=== PATIENT | male | born 1980 | race Caucasian/White ===

== ENCOUNTER 2017-01-01 18:34 | Emergency (ER) | payer MEDICAID ==
[~2017-01-01] VITALS: Ht 172.7 cm; Wt 87.4 kg
[~2017-01-01 18:34] MED LIST: BEN25 PO; HC1C30 TOP
[2017-01-01 18:39] VITALS: Ht 172.7 cm; Wt 87.4 kg
--- NOTE | 2017-01-01 18:58 | ERD ---
ER Documentation Chief Complaint Chief Complaint sp insect bite, right ankle open wound HPI 36-year-old male, previously healthy, presents to the emergency department complaining of an unidentified insect bite on his right internal malleolus that occurred 4 days ago. After the bite the patient had a painless blister surrounded by erythema and mild edema. The patient denies fevers, chills, arthralgia, rashes. ROS All systems reviewed and are negative except as per history of present illness. Medications Home Meds Active Scripts Silver Sulfadiazine* (SSD*) 1% - 20 Gm Cream.gm., 1 APPLIC TOP BID, #1 TUB Prov:CRYSTAL ROLAND MD 01/01/17 Hydrocortisone* Topical (Hydrocortisone* Topical) 1%-28.35 Gm Cream..g., 1 APPLIC TOP BID Y for ITCHING, #1 TUB Prov:CHAD DREW. 11/25/14 Diphenhydramine Hcl* (Benadryl*) 25 Mg Cap, 25 MG PO Q6, #20 CAP Prov:CHAD DREW. 11/25/14 Allergies Allergies: Coded Allergies: No Known Allergies (Verified Allergy, 10/14/10) PMhx/Soc History of Surgery: No Anesthesia Reaction: No Hx Neurological Disorder: No Hx Respiratory Disorders: No Hx Cardiac Disorders: No Hx Psychiatric Problems: No Hx Miscellaneous Medical Probl: No (NO OTHER MEDICAL PROBLEMS) Hx Alcohol Use: No Hx Substance Use: No Hx Tobacco Use: No Smoking Status: Never smoker Physical Exam Vitals Vital Signs Date Time Temp Pulse Resp B/P Pulse Ox O2 Delivery O2 Flow Rate FiO2 01/01/17 18:39 97.9 87 20 141/84 100 Physical Exam Patient is in no acute distress, vital signs stable. Alert and fully oriented. EYES: PERRLA, EOMI, Sclera and conjunctiva appear normal. EARS: Canals clear, tympanic membranes WNL THROAT: Normal oropharynx. NECK: Supple, No lymphadenopathy. Full ROM without pain or tenderness. HEART: RRR, no rubs, murmurs, clicks or gallops. LUNGS: Clear to auscultation. ABDOMEN: Soft, non-tender without masses or hepatosplenomegaly. EXTREMITIES: Right internal malleolus: 1 cm round ulcer, clean, with mild erythema. No edema, no warmth. Neurovascular exam intact BACK: Full ROM, no deformity, normal back exam NEURO: Cranial nerves grossly intact, no motor or sensory deficit Procedures/MDM 36y/o male patient unremarkable medical history, presents to the ED c/o right ankle ulcer after an insect bite for 4 days. Vital signs stable, Physical exam unremarkable, except for 2 cm round clean ulcer on internal malleolus, without signs of infection. Differential diagnosis include but not limited to: Cellulitis, abscess, allergic reaction, impetigo. Physical examination and clinical presentation consistent most likely with insect bite without infection. During the ED course the patient remained stable, no new complaints. Results and clinical impression discussed with patient who agrees with management. The patient is stable to be treated outpatient and will be discharged home with a Rx for topical Silvadene The patient was instructed to follow up with the primary care provider in the next 48h. If symptoms persist, worsen or new symptoms develop, then patient should return to the ED immediately. Instructions explained and given to patient in [place]an with acknowledgment and demonstrated understanding. Disclaimer: Inadvertent spelling and grammatical errors are likely due to EHR/ dictation software use and do not reflect on the overall quality of patient care. Also, please note that the electronic time recorded on this note does not necessarily reflect the actual time of the patient encounter. Departure Diagnosis: Primary Impression: Insect bite Condition: Stable Additional Instructions: Muchas charbel por [facility] para vail servicio. Esperamos que en vail visita a la queenie de emergencia vail problema medico haya sido solucionado y que se sienta mucho mejor. Para estar seguros que vail mejoria sigue en proceso, le pedimos el favor de hacer juan romelia de seguimiento medico con vail doctor primario en los proximos 2-4 blair. Lleve con usted estos documentos y las medicinas recetadas. Si bari sintomas empeoran y no puede sheridan a vail doctor, por favor regrese a queenie de emergencia. En mathew que usted no tenga un mdico de atencin primaria: Llame al mdico o clnica comunitaria de referencia que aparece abajo som las horas de consultorio para hacer juan romelia para que le vean. CLINICAS: [facility] [phone] [address] [facility] [phone] [address] [facility] [phone] [address] [facility] [phone] [address] [place] [id number] [phone] [facility]. [phone] CRYSTAL BAR MD Jan 01, 2017 18:58
[2017-01-01] MEDS ORDERED: SILV20CR13 TOP (19:11)
== END 2017-01-01 19:23 | disposition home or self-care (01) ==
LOC: FTE 18:34
DX: S90.561A Insect bite (nonvenomous), right ankle, initial encounter (principal); W57.XXXA Bitten or stung by nonvenomous insect and other nonvenomous arthropods, initial encounter; Y92.9 Unspecified place or not applicable
CPT/HCPCS: 99283

== ENCOUNTER 2017-09-25 13:55 | Emergency (ER) | END 2017-09-25 16:30 | disposition home or self-care (01) ==

== ENCOUNTER 2018-07-16 20:20 | Emergency (ER) | payer MEDICAID ==
[~2018-07-16] VITALS: Ht 175.3 cm; Wt 84.0 kg
[~2018-07-16 20:20] MED LIST changes: +PRED20TA PO; +SILV20CR13 TOP; +TRIA15CR55 TOP
[2018-07-16 20:31] VITALS: Ht 175.3 cm; Wt 84.0 kg
[2018-07-16] MEDS ORDERED: BEN25 PO (22:58)
[2018-07-16] MEDS ORDERED: HC30CR25 TOP (22:58)
[2018-07-16] MEDS ORDERED: IBUP-1542 PO (22:58)
--- NOTE | 2018-07-16 23:12 | ERD ---
ER Documentation Chief Complaint Chief Complaint pain/redness/rash/ right lower leg since yesterday, states poss insect bite HPI 38-year-old male with no reported past medical history who presents with complaint of right lower leg itchy rash. States he was at his brother's house and felt he was bit by an unknown insect. Since that time is had a small area of redness to the dorsum of right lower extremity. Area nontender to touch, pruritic. He otherwise denies lower extremity weakness, paresthesias, fevers, chills, concerning respiratory symptoms such as shortness of breath, dyspnea, lip or tongue swelling. He denies any allergies to any medications and is otherwise without complaint. ROS All systems reviewed and are negative except as per history of present illness. Medications Home Meds Active Scripts Ibuprofen* (Motrin*) 600 Mg Tab, 600 MG PO Q6, #30 TAB Prov:YEMI DE LA TORRE PA-C 07/16/18 Diphenhydramine Hcl* (Benadryl*) 25 Mg Cap, 25 MG PO Q6 PRN for ITCHING/RASH, #20 TAB Prov:YEMI DE LA TORRE PA-C 07/16/18 Hydrocortisone* Topical (Hydrocortisone* Topical) 2.5%-28.3 Gm Cream..g., 1 APPLIC TOP BID for 7 Days, #1 TUB Prov:YEMI DE LA TORRE PA-C 07/16/18 Prednisone* (Prednisone*) 20 Mg Tab, 40 MG PO DAILY for 4 Days, TAB Prov:SHANNAN MANN MD 09/25/17 Diphenhydramine Hcl* (Benadryl*) 25 Mg Cap, 25 MG PO Q6, #15 CAP Prov:SHANNAN MANN MD 09/25/17 Triamcinolone Acetonide (Triamcinolone Acetonide) 0.1% - 15 Gm Cream.gm., 1 APPLIC TOP BID for 7 Days, #1 TUB Prov:SHANNAN MANN MD 09/25/17 Silver Sulfadiazine* (SSD*) 1% - 20 Gm Cream.gm., 1 APPLIC TOP BID, #1 TUB Prov:CRYSTAL ROLAND MD 01/01/17 Hydrocortisone* Topical (Hydrocortisone* Topical) 1%-28.35 Gm Cream..g., 1 APPLIC TOP BID PRN for ITCHING, #1 TUB Prov:CHAD DREW M. 11/25/14 Diphenhydramine Hcl* (Benadryl*) 25 Mg Cap, 25 MG PO Q6, #20 CAP Prov:CHAD DREW M. 11/25/14 Allergies Allergies: Coded Allergies: No Known Allergies (Verified Allergy, Unknown, 09/25/17) PMhx/Soc History of Surgery: No Anesthesia Reaction: No Hx Neurological Disorder: No Hx Respiratory Disorders: No Hx Cardiac Disorders: No Hx Psychiatric Problems: No Hx Miscellaneous Medical Probl: No (NO OTHER MEDICAL PROBLEMS) Hx Alcohol Use: No Hx Substance Use: No Hx Tobacco Use: No Smoking Status: Never smoker FmHx Family History: No diabetes, No coronary disease, No other Physical Exam Vitals Vital Signs Date Temp Pulse Resp B/P (MAP) Pulse Ox O2 O2 Flow FiO2 Time Delivery Rate 07/16/18 99.0 95 18 131/63 98 20:31 (85) Physical Exam I have reviewed the triage vital signs. Const: Well nourished, well developed, appears stated age Eyes: PERRL, no conjunctival injection HENT: NCAT, Neck supple without meningismus CV: RRR, Warm, well-perfused extremities RESP: CTAB, Unlabored respiratory effort GI: soft, non-tender, non-distended, no masses MSK: No gross deformities appreciated Skin: Warm, dry. 3 with 3 area of erythema, no open lesion, nontender, distal extremity with good pulses, wiggles all toes Neuro: grossly non focal Psych: Appropriate mood and affect. Procedures/MDM 38-year-old male who presents with rash consistent with insect bite. Rash not appear infected and I have low suspicion for systemic infection. I have low suspicion for acute process warranting further emergent care or work-up. Patient did not exhibit any signs or symptoms of severe allergic reaction. We will discharge with Benadryl and hydrocortisone plaque to the area, strict return precautions explained in detail DISPOSITION PLAN: We discussed follow up with the patient's primary care doctor within 24 to 48 hours. Patient counseled regarding my diagnostic impression and care plan. Prior to discharge all questions answered. Pt agrees with treatment plan and understands strict return precautions. Precautionary instructions provided including instructions to return to the ER if not improving or for any worsening or changing symptoms or concerns. Disclaimer: Inadvertent spelling and grammatical errors are likely due to EHR/dictation software use and do not reflect on the overall quality of patient care. Also, please note that the electronic time recorded on this note does not necessarily reflect the actual time of the patient encounter. Departure Diagnosis: Primary Impression: Insect bite Condition: Stable Patient Instructions: Insect Bite Referrals: [facility] YOU HAVE RECEIVED A MEDICAL SCREENING EXAM AND THE RESULTS INDICATE THAT YOU DO NOT HAVE A CONDITION THAT REQUIRES URGENT TREATMENT IN THE EMERGENCY DEPARTMENT. FURTHER EVALUATION AND TREATMENT OF YOUR CONDITION CAN WAIT UNTIL YOU ARE SEEN IN YOUR DOCTORS OFFICE WITHIN THE NEXT 1-2 DAYS. IT IS YOUR RESPONSIBILITY TO MAKE AN APPOINTMENT FOR FOLOW-UP CARE. IF YOU HAVE A PRIMARY DOCTOR --you should call your primary doctor and schedule an appointment IF YOU DO NOT HAVE A PRIMARY DOCTOR YOU CAN CALL OUR PHYSICIAN REFERRAL HOTLINE AT IF YOU CAN NOT AFFORD TO SEE A PHYSICIAN YOU CAN CHOSE FROM THE FOLLOWING [facility] [address] [facility] [address] [facility] [address] [facility] [address] [facility] [address] [facility]. [facility]. [address] Additional Instructions: Call your primary care doctor TOMORROW for an appointment during the next 2-3 days.See the doctor sooner or return here if your condition worsens before your appointment time. YEMI DE LA TORRE PA-C Jul 16, 2018 23:12
[2018-07-16 23:24] VITALS: BP 123/73; PULSE 68; RESP 18
== END 2018-07-16 23:25 | disposition home or self-care (01) ==
LOC: FTE 20:20
DX: S80.861A Insect bite (nonvenomous), right lower leg, initial encounter (principal); W57.XXXA Bitten or stung by nonvenomous insect and other nonvenomous arthropods, initial encounter; Y92.9 Unspecified place or not applicable
CPT/HCPCS: 99283